=== PATIENT | female | born 1930 | race Caucasian/White ===

== ENCOUNTER 2017-03-03 13:18 | Inpatient (IN) ==
[2017-03-03] MEDS ORDERED: IPRATROPIUM/ALBUTEROL SULFATE 3 ML NEB NEB ONE ×2 (13:28→13:30)
[2017-03-03] MEDS ORDERED: Sodium Chloride 0.9% 1,000 ML PRIMARY IV ONE (13:30)
--- NOTE | 2017-03-03 13:39 | PDOC ---
Dyspnea HPI - General Chief Complaint: Respiratory Complaint Stated Complaint: SHORTNESS OF BREATH Date Seen by Provider: 03/03/17 Time Seen by Provider: 13:30 Source: POSITIVE: Patient, Police Treatment Prior to Arrival: REPORTS: None Nurse's Notes Reviewed & Considered: Yes - History of Present Illness Initial Comments: This is a very pleasant 86-year-old female complaining of shortness of breath. Patient with cough, shortness of breath, and fevers. Her symptoms have been escalating in the beginning of her symptoms is of uncertain timing. Patient is brought in by her son and he states that she just recently has started to try to quit smoking. She does not have a primary care physician. Patient denies headache, no sore throat, no abdominal pain, no nausea vomiting or diarrhea, she does have fever chills and sweats. She has a cough that is productive with yellowish phlegm. She is hypoxic at 77% on room air. Body Location Affected: REPORTS: Chest Timing: REPORTS: Unknown Duration: Unknown Severity: Severe Initiating Event: REPORTS: Upper Respiratory Illness Context: DENIES: Sleep, Rest, Emotional Upset, Activity, Exertion, Other Exacerbated By: REPORTS: Exertion, Coughing Associated Symptoms: REPORTS: Fever, Chills, Sweating, Chest Heaviness, Productive Cough Similar Symptoms Previously: No Recently seen/treated/hospitalized: No Any Prior Injuries Related to Current Complaint?: No - Patient Home Medications Home Medications: Home Medications NK [NK] 03/03/17 - Patient Allergies Allergies/Adverse Reactions: Allergies 3 Allergy/AdvReac Type Severity Reaction Status Date / Time No Known Allergies Allergy Verified 03/03/17 13:43 ROS - Limitations ROS Limitations: No Limitations Constitution: REPORTS: Chills, Fever, Diaphoresis Cardiovascular: REPORTS: Chest Pain Respiratory: REPORTS: Cough Productive, Shortness Of Breath, Wheezing Neurological: REPORTS: Denies Neuro Symptoms Gastrointestinal: REPORTS: Denies GI Symptoms Endocrine: REPORTS: Denies Symptoms Musculoskeletal: REPORTS: Denies MS Symptoms Genitourinary: REPORTS: Denies Symptoms Eyes: REPORTS: Denies Symptoms ENT: REPORTS: Denies Symptoms Skin: REPORTS: Denies Skin Symptoms Lympathic: REPORTS: Denies Lympathic Symptoms Immunologic: POSITIVE: Denies Symptoms Psychiatric: POSITIVE: Denies Psych Symptoms Dyspnea Physical Exam - General Appearance General Appearance: REPORTS: Alert, Cooperative, No Evidence of Trauma, Moderate Distress - HEENT HEENT: POSITIVE: Head Inspection Nml, Eyes Inspection Nml, Ears Inspection Nml, Nose Inspection Nml, Oral/Dental Inspect. Nml, Pharynx Inspect. Nml, PERRL, EOMI - Neck Neck: REPORTS: Normal Inspection - Respiratory Respiratory: REPORTS: No Pleuritic Chest Pain, Speaks Full Sentences, No Pain on Inspiration, Wheezes, Rhonchi, Prolonged Expirations, Accessory Muscle Use, Decreased Air Movement - Cardiovascular Cardiovascular: REPORTS: Regular Rate and Rhythm, Heart Sounds Normal, Strong Pulses, No Murmur, No Gallop, No Friction Rub, No JVD Peripheral Pulses: Radial (R): 4+ - Abdomen Abdomen: Soft: (All Quadrants), Normal Bowel Sounds: (All Quadrants), Denies Tenderness: (All Quadrants), No Splenomegaly: (All Quadrants), No Hepatomegaly: (All Quadrants), No Guarding: (All Quadrants), No Rebound: (All Quadrants), No Palpable Pulse: (All Quadrants), No Palpabale Mass: (All Quadrants), No Distention: (All Quadrants), No Rigidity: (All Quadrants) - Skin Skin: REPORTS: Intact, Normal For Race, Warm, Dry, No Rash - Extremities Extremity: Non-Tender: (All Extremities), Normal ROM: (All Extremities), Normal Inspection: (All Extremities), Pelvis Stable: (All Extremities) - Neurological / Psychological Neurological: POSITIVE: Oriented X3, Motor Normal, Sensation Normal Dyspnea Progress - Results Reviewed by me Xrays/CTs/US Reviewed by me: Yes Discussed with Radiologist: Yes Lab Results Reviewed by Me: Yes CBC and BMP: 03/03/17 13:35 03/03/17 13:35 - Patient's Progress Pain Medication Addressed: POSITIVE: Not Applicable Re-Examine Time: 15:55 Status: POSITIVE: Improved MDM / ED Course: Patient was examined, an IV started, blood drawn and sent to the lab for studies , CT scan of her chest as well as chest x-ray were obtained. Findings: Chest x-ray shows hyperinflation of her lungs with no confluent or consolidated infiltrates. CT scan shows no PE present and no consolidation. CBC shows white count elevated to 12-1/2. Comprehensive metabolic panel is unremarkable. Sputum culture shows wbc's present moderate gram-positive cocci in pairs and singles, gram-positive rods, some yeast. Mycoplasmas and is pending. Assessment: COPD exacerbation with hypoxia and increased work of breathing. plan: Admission, IV antibiotics provided here in the emergency room with Rocephin, and oral azithromycin, Solu-Medrol. DuoNeb nebulizer treatment did improve her wheezing with fair air movement afterwards. Air Movement: POSITIVE: Fair Quality Measure Initiative: CAP: POSITIVE: Antibiotic(s), CXR or CT - Consult Consult (If Yes, Name of Consulting MD & Time Called): Yes (Dr. Salinas: 15:55) Consulting MD will see pt:: POSITIVE: [facility] [place] Admit Counseled: POSITIVE: Patient, Family, RE: Lab Results, RE: Radiology Results, RE : DX Patient Care Time - Estimated PCT Patient Care Time (In Minutes): 45 Vital Signs - Recent Vital Signs Vital Signs: Vital Signs (Last 8 hours) Temp Pulse Pulse Resp BP Pulse Ox 03/03/17 13:45 96.8 F 114 H 18 191/108 76 03/03/17 13:30 110 H 18 91 - VS Reviewed Vital Signs Reviewed: Yes Discharge Clinical Impression: Wheezing, COPD exacerbation, Hypoxia Discharge Disposition: Admit to Inpatient Condition: Fair Patient Instructions Given at Discharge: COPD (Chronic Obstructive Pulmonary Disease) (ED) Follow Up With: NONE,NONE [Primary Care Provider] - Date Decision to Admit to Inpatient: 03/03/17 Time Decision to Admit to Inpatient: 15:59
[2017-03-03 13:47] LABS: Hematocrit [HCT] 45.8 % (37.0-47.0); Hemoglobin [HGB] 15.7 g/dL (12.0-16.0); MEAN CORPUSCULAR HEMOGLOBIN 31.2 PG (27-31); MEAN CORPUSCULAR HGB CONC 34.3 g/dL (33-37); MEAN CORPUSCULAR VOLUME 90.9 FL (81-99); MEAN PLATELET VOLUME 11.3 FL (7.4-12.2); RED BLOOD COUNT 5.04 10^6/uL (4.20-5.40)
[2017-03-03 13:57] LABS: BLOOD UREA NITROGEN 19 mg/dL (7-22); BUN/CREATININE RATIO 31.66 (6-20)
[2017-03-03 14:03] LABS: VENOUS PH 7.36 (7.32-7.42)
[2017-03-03 14:05] LABS: PLATELET MORPHOLOGY COMMENT NORMAL MORPHOLOGY (NORM); RBC MORPHOLOGY COMMENT NORMAL MORPHOLOGY (NORM); WBC MORPHOLOGY COMMENT SEE COMMENTS (NORM)
[2017-03-03 14:06] LABS: BAND NEUTROPHILS % 4 % (0-10); BASOPHILS % (MANUAL) 0 % (0-1); EOSINOPHILS % (MANUAL) 1 % (0-8); METAMYELOCYTES % 3 %; MONOCYTES % (MANUAL) 9 % (0-12); MYELOCYTES % 0 %; NEUTROPHILS % (MANUAL) 71 % (50-80); PROMYELOCYTES % 0 %
--- NOTE | 2017-03-03 15:43 | DI ---
EXAM: XR Chest, 2 Views CLINICAL HISTORY: Physician Notes: Tech Comments: TECHNIQUE: Frontal and lateral views of the chest. COMPARISON: X-ray 10/29/11 FINDINGS: Lungs: Hyperinflated lung ayala. Mild reticulonodular opacities. No focal consolidation. Pleural space: Unremarkable. No pneumothorax. Heart: Unremarkable. Mediastinum: Unremarkable. Bones/joints: No acute fracture. IMPRESSION: Hyperinflated lung ayala. Mild reticulonodular opacities. No confluent consolidation.
[2017-03-03] MEDS ORDERED: AZITHROMYCIN 250 MG TABLET PO ONE (15:51)
[2017-03-03] MEDS ORDERED: cefTRIAXone Inj 2 GM in Sodium Chloride 0.9% 100 ML IV ONE (15:51)
[2017-03-03] MEDS ORDERED: methylPREDNISolone Succ Inj 125 MG in Sodium Chloride 0.9% 100 ML IV ONE (15:52)
[2017-03-03] MEDS ORDERED: methylPREDNISolone 125 MG/2 ML VIAL IVP ONE (15:59)
--- NOTE | 2017-03-03 16:04 | DI ---
EXAM: CT Angiography Chest With Intravenous Contrast CLINICAL HISTORY: Physician Notes: Tech Comments: TECHNIQUE: Axial computed tomographic angiography images of the chest with intravenous contrast using pulmonary embolism protocol. MIP reconstructed images were created and reviewed. COMPARISON: No relevant prior studies available. FINDINGS: Pulmonary arteries: No central pulmonary embolus. Aorta: No thoracic aortic aneurysm. Lungs: Mild patchy nodular infiltrates. Scarring in the lung apices hyperinflated lung ayala Pleural space: Unremarkable. No effusion. No pneumothorax. Heart: Small pericardial effusion. Bones/joints: No acute fracture. No dislocation. Soft tissues: Unremarkable. Lymph nodes: Unremarkable. No enlarged lymph nodes. Kidneys and ureters: Right renal cyst. IMPRESSION: 1. No central pulmonary embolus. 2. Small pericardial effusion. 3. Mild patchy nodular infiltrates.
[2017-03-03] MEDS ORDERED: LIDOCAINE W/ SODIUM BICARB 0.5 ML SYR SUBD PRN (16:46)
[2017-03-03] MEDS ORDERED: ALBUTEROL SULFATE 2.5 MG/3 ML NEB PRN (16:50)
--- NOTE | 2017-03-03 17:15 | PDOC ---
HPI - History of Present Illness Date and Time of Service: 03/03/2017 5:40 PM Chief Complaint: Shortness of breath of 2 days' duration History of Present Illness: This is an 86 years old female with medical history significant only for history of hypertension on no medications who came into the hospital with history of shortness of breath that started 2 days ago, shortness of breath is exertional also has cough and phlegm production which is yellow. She didn't think that she had fever. There is no chest pain. There is no leg swelling. Because of all the symptoms came into the ER, she was hypoxic with saturation of about 76% on room air. She was put on oxygen and the rest of Evaluation in the ER revealed COPD exacerbation and hence the admission. She did receive steroid, bronchodilator treatment and antibiotics. She is feeling somewhat better compared to when she came in. She said she is fairly independent and she 's not on oxygen at home. Past Medical History Medical History: 1. Hypertension Surgical History: History of previous hip replacement Family History: Reviewed an Not Pertinent Past Social History: She continued to smoke she smoke a pack a day since she was 15 years old, doesn't drink alcohol. Tobacco Use: Current Every Day Smoker In the Past 12 Months, Have Used or Abuse Any of the Following Substance: None Alcohol Use: None Medication / Allergies Home Medications: Home Medications Medication Instructions Recorded Confirmed Type NK [NK] 03/03/17 03/03/17 History Allergies/Adverse Reactions: Allergies 3 Allergy/AdvReac Type Severity Reaction Status Date / Time No Known Allergies Allergy Verified 03/03/17 16:35 Review of Systems - Review of Systems All Systems: Reviewed & No Additional Complaints Except as Stated Exam - Vitals Vital Signs: Vital Signs Pulse Rate [Apical] 120 Respiratory Rate 28 Oxygen Flow Rate 2 Oxygen Delivery Method Nasal Cannula Height 5 ft 2 in Weight 111 lb 3.2 oz - General General Appearance: Thin Additional General Exam Details: Her breathing is labored - Head Head Exam: Normal Inspection - Eye Eye Exam: POSITIVE: Normal Appearance - ENT ENT Exam: POSITIVE: Normal Exam - Neck Neck Exam: Normal Inspection - Respiratory Additional Respiratory Exam Details: Bilateral expiratory wheezes heard - Cardiovascular Cardiovascular Exam: POSITIVE: RRR - GI/Abdominal GI/Abdominal Exam: POSITIVE: Normal Bowel Sounds, Non Tender, Non Distended, Soft - Rectal Rectal Exam: POSITIVE: Deferred - External Exam: POSITIVE: Deferred - Extremities Extremities Exam: POSITIVE: Normal Inspection - Back Back Exam: POSITIVE: Normal Inspection - Neurological Neurological Exam: POSITIVE: Alert - Psychiatric Psychiatric Exam: POSITIVE: Normal Affect - Integumentary Integumentary Exam: POSITIVE: Normal Color Results - Labs CBC and BMP: 03/03/17 13:35 03/03/17 13:35 - EKG Data -: EKG Interpreted by Me Rate: Tachycardia - EKG Data EKG Interpretation: Other (EKG shows sinus tachycardia with frequent supraventricular premature beats, borderline right axis deviation) - Imaging Status: Report Reviewed by Me (CT of the chest showed no central pulmonary embolus, small pericardial effusion, mild patchy nodular infiltrates) Assessment and Plan - Patient Problems (1) COPD exacerbation Current Visit: Yes Status: Acute Comment: We'll treat as such her with steroids, antibiotics and bronchodilator. Code(s): J44.1 - Chronic obstructive pulmonary disease with (acute) exacerbation (2) Hypertension Current Visit: Yes Status: Acute Comment: We'll watch her blood pressure we may need to put her on medication for blood if pressure blood pressure remains elevated. Code(s): I10 - Essential (primary) hypertension
[2017-03-03] MEDS: Sodium Chloride 0.9% 1,000 ML PRIMARY IV SCH (17:20)
--- NOTE | 2017-03-03 18:02 | EKG ---
[address] [address] Measurements Intervals [place] Rate: 108 P: 81 WA: 149 QRS: 100 QRSD: 82 T: 69 QT: 319 QTc: 383 Interpretive Statements SINUS TACHYCARDIA WITH FREQUENT SUPRAVENTRICULAR PREMATURE COMPLEXES BORDERLINE RIGHT AXIS DEVIATION NONSPECIFIC ST & T-WAVE ABNORMALITY ABNORMAL RHYTHM ECG No previous ECG available for comparison Electronically Signed On 03-03-17 20:01:23 MDT by João Bowen [email or web address]
[2017-03-03] MEDS ORDERED: IPRATROPIUM/ALBUTEROL SULFATE 3 ML NEB NEB SCH (19:00)
[2017-03-03] MEDS ORDERED: AmLODIPine Tab 2.5 MG TABLET PO ONE (20:00)
[2017-03-03] MEDS: methylPREDNISolone 125 MG/2 ML VIAL IVP SCH (23:31)
[2017-03-04 04:33] LABS: BASOPHILS # (AUTO) 0.02 10*3/UL; BASOPHILS % (AUTO) 0.3 % (0-1); EOSINOPHILS # (AUTO) 0 10*3/UL; EOSINOPHILS % (AUTO) 0 % (0-8); Hematocrit [HCT] 39.6 % (37.0-47.0); Hemoglobin [HGB] 13.5 g/dL (12.0-16.0); LYMPHOCYTES # (AUTO) 0.46 10*3/uL; MEAN CORPUSCULAR HEMOGLOBIN 31.5 PG (27-31); MEAN CORPUSCULAR HGB CONC 34.1 g/dL (33-37); MEAN CORPUSCULAR VOLUME 92.3 FL (81-99); MEAN PLATELET VOLUME 11.4 FL (7.4-12.2); MONOCYTES # (AUTO) 0.71 10*3/UL (0.3-0.8); MONOCYTES % (AUTO) 8.9 % (5-15); NEUTROPHILS # (AUTO) 6.72 10*3/UL; NEUTROPHILS % (AUTO) 84.6 % (50-80); RED BLOOD COUNT 4.29 10^6/uL (4.20-5.40)
[2017-03-04 04:46] LABS: BLOOD UREA NITROGEN 16 mg/dL (7-22); BUN/CREATININE RATIO 26.66 (6-20)
[2017-03-04] MEDS: methylPREDNISolone 125 MG/2 ML VIAL IVP SCH ×4 (04:46→22:15)
[2017-03-04 04:48] LABS: PLATELET MORPHOLOGY COMMENT NORMAL MORPHOLOGY (NORM); RBC MORPHOLOGY COMMENT NORMAL MORPHOLOGY (NORM); WBC MORPHOLOGY COMMENT NORMAL MORPHOLOGY (NORM)
[2017-03-04] MEDS: Sodium Chloride 0.9% 1,000 ML PRIMARY IV SCH (05:51)
[2017-03-04] MEDS: LEVALBUTEROL HCL 1.25 MG/3 ML NEB SCH ×4 (07:21→19:24)
[2017-03-04] MEDS ORDERED: AmLODIPine Tab 2.5 MG TABLET PO SCH (09:00)
--- NOTE | 2017-03-04 09:20 | PDOC(PROG) ---
Date and Time of Service: 03/04/2017 9:18 AM Interval History: Subjective Patient feels much better today compared to yesterday, breathing is better, cough is also better. Objective : Data - Labs CBC and BMP: 03/04/17 03:50 03/04/17 03:50 Objective : Exam - General General Appearance: No Acute Distress, Cooperative - Head Head Exam: Normal Inspection, Atraumatic - Eye Eye Exam: Normal Appearance - ENT ENT Exam: Normal Exam - Neck Neck Exam: Normal Inspection - Respiratory Additional Respiratory Exam Details: Bilateral wheezes still present but less than yesterday - Cardiovascular Cardiovascular Exam: RRR - GI/Abdominal GI/Abdominal Exam: Normal Bowel Sounds, Non Tender, Non Distended, Soft - Rectal Rectal Exam: Deferred - External Exam: Deferred - Extremities Extremities Exam: Normal Inspection - Back Back Exam: Normal Inspection - Neurological Neurological Exam: Alert, CN II-XII Intact, No Facial Droop, Speech Intact / Clear, Moves All Extremities Equally - Psychiatric Psychiatric Exam: Normal Affect Assessment and Plan - Patient Problems (1) COPD exacerbation Current Visit: Yes Status: Acute Comment: She is improving, But she continued to have some wheezes I think we'll keep the same dosage of the steroid for today will think about cutting it tomorrow. The CT showed some patchy infiltrates so continue antibiotics. She did have elevated lactate when she came in I think this mostly secondary to the hypoxia its improved, I think we can stop the fluid. Code(s): J44.1 - Chronic obstructive pulmonary disease with (acute) exacerbation (2) Hypertension Current Visit: Yes Status: Acute Comment: Blood pressure remained high yesterday so I gave her a dose of Norvasc will continue Code(s): I10 - Essential (primary) hypertension (3) DVT prophylaxis Current Visit: Yes Status: Acute Comment: Well Put her on SCD boots and low dose Lovenox
--- NOTE | 2017-03-04 11:33 | PDOC(PROG) ---
Objective : Data - Labs CBC and BMP: 03/04/17 03:50 03/04/17 03:50 Assessment and Plan - Patient Problems (1) COPD exacerbation Current Visit: Yes Status: Acute Code(s): J44.1 - Chronic obstructive pulmonary disease with (acute) exacerbation (2) Hypertension Current Visit: Yes Status: Acute Code(s): I10 - Essential (primary) hypertension (3) DVT prophylaxis Current Visit: Yes Status: Acute
[2017-03-04] MEDS: cefTRIAXone Inj 1 GM in Sodium Chloride 0.9% 100 ML IV SCH (16:15)
[2017-03-04] MEDS ORDERED: ONDANSETRON 4 MG/2 ML VIAL IVP PRN (18:37)
[2017-03-04] MEDS ORDERED: Influenza 17-18 Vaccine (6mo+) Quad 60mcg/0.5ml PF IM ONE (20:00)
[2017-03-04] MEDS: diphenhydrAMINE 25 MG CAPSULE PO PRN (21:43)
[2017-03-04] MEDS: ACETAMINOPHEN 500 MG TABLET PO PRN (21:44)
[2017-03-04] MEDS: MAGNESIUM 400 MG/5 ML - 30 ML (MILK OF MAGNESIA) PO PRN (21:45)
[2017-03-04] MEDS: NORMAL SALINE 10 ML SYRINGE FLUSH IVP PRN (22:15)
[2017-03-05] MEDS: NORMAL SALINE 10 ML SYRINGE FLUSH IVP PRN ×2 (04:32→19:50)
[2017-03-05] MEDS: methylPREDNISolone 125 MG/2 ML VIAL IVP SCH ×3 (04:32→19:50)
[2017-03-05] MEDS: LEVALBUTEROL HCL 1.25 MG/3 ML NEB SCH ×4 (07:12→19:00)
--- NOTE | 2017-03-05 07:40 | PDOC(PROG) ---
Date and Time of Service: 03/05/2017 7:40 AM Interval History: Subjective Patient continued to feel better. Breathing is improving. No significant cough. No chest pain. Objective : Data - Labs CBC and BMP: 03/04/17 03:50 03/04/17 03:50 Objective : Exam - General General Appearance: No Acute Distress, Cooperative, Thin - Head Head Exam: Normal Inspection - Eye Eye Exam: Normal Appearance - ENT ENT Exam: Normal Exam - Neck Neck Exam: Normal Inspection - Respiratory Additional Respiratory Exam Details: Still bilateral wheezes less than before. - Cardiovascular Cardiovascular Exam: RRR - GI/Abdominal GI/Abdominal Exam: Normal Bowel Sounds, Non Tender, Non Distended, Soft, No Organomegaly - Rectal Rectal Exam: Deferred - External Exam: Deferred - Extremities Extremities Exam: Normal Inspection - Back Back Exam: Normal Inspection - Neurological Neurological Exam: Alert, Oriented x 3, CN II-XII Intact, Speech Intact / Clear , Moves All Extremities Equally - Psychiatric Psychiatric Exam: Normal Affect Assessment and Plan - Patient Problems (1) COPD exacerbation Current Visit: Yes Status: Acute Comment: This is improving I think we'll start cutting back on the steroid. Continue antibiotics. Continue bronchodilator. He is weak will ask PT and OT to work with her. Code(s): J44.1 - Chronic obstructive pulmonary disease with (acute) exacerbation (2) Hypertension Current Visit: Yes Status: Acute Comment: Blood pressure when she came in was elevated in the 190s systolic and we gave her a dose of Norvasc. Blood pressure seem to be coming down I think will hold off on further medications and watch her blood pressure. Code(s): I10 - Essential (primary) hypertension (3) DVT prophylaxis Current Visit: Yes Status: Acute Comment: She is on Lovenox (4) Gram-positive bacteremia Current Visit: Yes Status: Acute Comment: 1 bottle out of 4 is growing gram-positive coccobacillus clinically she is making improvements I think we'll continue same antibiotics until we have identifications. Code(s): R78.81 - Bacteremia
[2017-03-05] MEDS: ENOXAPARIN SODIUM 30 MG/0.3 ML SYRINGE SUBCUT SCH (08:30)
[2017-03-05] MEDS ORDERED: AmLODIPine Tab 2.5 MG TABLET PO SCH (09:00)
--- NOTE | 2017-03-05 16:09 | PT.PROG ---
Progress Note Progress Note: S. Patient stated that she is feeling good this afternoon. O. Patient ambulated 3 laps around the nurses station then performed exercises in the form of; Long arc quads, heel toe raises, marches, pillow squeezes, clamshells, resisted knee flexion, sit to stands all x 10 bilaterally. Patient was left with OT for further therapy. A. Patient tolerated therapy well, she continues to have balance deficits however is able to perform all exercises well. She would continue to benefit from skilled therapy at this time. P. Continue POC.
--- NOTE | 2017-03-05 16:14 | OTI REPORT ---
Thank you for the referral of Lupe Canas. She was seen on 03/05/17 for an occupational therapy inpatient evaluation secondary to COPD exacerbation and hypertension. SUBJECTIVE: The patient is an 86-year-old female who is being seen today secondary to having a COPD exacerbation and hypertension. She said that she was diagnosed approximately five years ago. The patient reports she was probably too busy last week as she went to a football game and it was very cold and she thinks that is what started some of her breathing difficulties. The patient also went to a concert the same night at the high school, had been to [employer] two days in a row, and also had to do quite a bit of driving around running errands on and Saturday. By Saturday, the patient said it hit her. The patient lives by herself in a trailer home. She has four steps to get into her home with a hand rail. The patient has a bathtub that she usually sits in with grab bars in the bath. The patient has a standard toilet. Prior to admission the patient was independent with laundry, cooking, cleaning, groceries, and driving and she is in charge of her medications. She states the only medications she takes are Aleve and Tylenol PM and she uses Aspercreme for achy joints. She says she does not have any difficulty with swallowing food or liquid. The patient states that her daughter helps her every once in a while, but for the most part she tries to be as independent as possible. PAST MEDICAL HISTORY: Past medical history can be found in the patient's medical record. OBJECTIVE FINDINGS: Range of motion: The patient demonstrates full active range of motion of the upper extremities. Strength: Strength throughout was 4/5 for flexion, 4/5 for abduction, 4+/5 for biceps/triceps, 4/5 for wrist flexion/extension. Bed mobility: The patient did well with bed mobility. She turned around behind her and grabbed items off of the table and was able to pull herself back up with her stomach muscles. Activities of daily living: The patient was able to sit edge of bed and don and doff her socks independently by placing her ankle on the opposite leg. We went to the bathtub area and the patient was able to sit in the bathtub completely and then pull herself back up with use of grab bars. She states that getting up is slightly more difficult but she was able to do this without much difficulty. The patient was able to complete a tub transfer as well as a toilet transfer with stand by assistance. At this point in time the patient is independent with feeding herself. She does not present with any swallowing difficulties. ASSESSMENT: The patient is doing very well with her ADLs. She requires stand by assist for functional transfers and does not require any assistive devices at this point in time. Problem List: Decreased activity tolerance Decreased strength Short-Term Goals: To be met by discharge from inpatient: Patient will increase upper extremity strength to 5/5. Patient will be able to complete 20 minutes of exercise without breathing difficulties. Patient will learn three energy conservation techniques that she can complete on her own. Long-Term Goals: To be met following discharge from inpatient: Patient will return home and be able to complete all in home and activities of daily living independently. TREATMENT PLAN: Patient will be seen B.I.D during the week and one time per day over the weekend as an inpatient to address the above goals and objectives. INITIAL TREATMENT: Treatment today consisted of the initial evaluation followed by lower extremity dressing activities and simulating a tub transfer with stand by assistance. The patient was then transferred back to bed. SILVANA
[2017-03-05] MEDS: cefTRIAXone Inj 1 GM in Sodium Chloride 0.9% 100 ML IV SCH (16:15)
--- NOTE | 2017-03-05 16:45 | OT.PROG ---
Progress Note Progress Note: S; pt states she walks at least 200 ft a day when she goes to her sons. O: pt was seen in her room in the p.m. after PT. She completed several activities with PT before beginning OT. She completed UE exercises while seated with RTB in all ranges x15 with BUE's. She also completed bed mobility Ind and was left in supine with alarm on and call light within reach. A: pt may continue to benefit from therapy to increase activity tolerance and strength of LE/UE to return home Ind and functional. P: continue per POC.
[2017-03-05] MEDS: diphenhydrAMINE 25 MG CAPSULE PO PRN (21:12)
[2017-03-05] MEDS: ACETAMINOPHEN 500 MG TABLET PO PRN (21:12)
[2017-03-06] MEDS: methylPREDNISolone 125 MG/2 ML VIAL IVP SCH ×3 (04:24→20:29)
[2017-03-06] MEDS: NORMAL SALINE 10 ML SYRINGE FLUSH IVP PRN ×2 (04:24→20:29)
[2017-03-06 05:10] LABS: Hematocrit [HCT] 38.6 % (37.0-47.0); Hemoglobin [HGB] 12.7 g/dL (12.0-16.0); MEAN CORPUSCULAR HEMOGLOBIN 30.8 PG (27-31); MEAN CORPUSCULAR HGB CONC 32.9 g/dL (33-37); MEAN CORPUSCULAR VOLUME 93.7 FL (81-99); MEAN PLATELET VOLUME 11.3 FL (7.4-12.2); RED BLOOD COUNT 4.12 10^6/uL (4.20-5.40)
[2017-03-06 05:43] LABS: BLOOD UREA NITROGEN 30 mg/dL (7-22); BUN/CREATININE RATIO 42.85 (6-20)
[2017-03-06 06:06] LABS: PLATELET MORPHOLOGY COMMENT NORMAL MORPHOLOGY (NORM); RBC MORPHOLOGY COMMENT NORMAL MORPHOLOGY (NORM); WBC MORPHOLOGY COMMENT NORMAL MORPHOLOGY (NORM)
[2017-03-06 06:08] LABS: BAND NEUTROPHILS % 16 % (0-10); BASOPHILS % (MANUAL) 0 % (0-1); EOSINOPHILS % (MANUAL) 0 % (0-8); MONOCYTES % (MANUAL) 1 % (0-12); NEUTROPHILS % (MANUAL) 72 % (50-80)
[2017-03-06] MEDS: LEVALBUTEROL HCL 1.25 MG/3 ML NEB SCH ×4 (06:15→19:07)
[2017-03-06] MEDS: ENOXAPARIN SODIUM 30 MG/0.3 ML SYRINGE SUBCUT SCH (08:17)
--- NOTE | 2017-03-06 10:58 | PDOC(PROG) ---
Interval History: Patient still not ready to go home she says does not feel comfortable still wheezing and occasional cough bilateral lungs and weak Objective : Data - Labs CBC and BMP: 03/06/17 04:00 03/06/17 04:00 Objective : Exam - General General Appearance: No Acute Distress, Cooperative - Respiratory Respiratory Exam: Decreased Breath Sounds, Rhonci, Wheezes, Coarse Breath Sounds - Cardiovascular Cardiovascular Exam: RRR, No Murmur, No Clicks, No Gallops - GI/Abdominal GI/Abdominal Exam: Normal Bowel Sounds, Non Tender, Non Distended, Soft - Extremities Extremities Exam: No Clubbing Present, No Cyanosis Present Assessment and Plan - Patient Problems (1) Pneumonia Current Visit: Yes Status: Acute Comment: I will changed to 2 g IV ceftriaxone positive blood cultures for Haemophilus influenza. She did receive her pneumonia shot earlier this month Code(s): J18.9 - Pneumonia, unspecified organism (2) COPD exacerbation Current Visit: Yes Status: Acute Comment: Still wheezing continue steroids inhalers Code(s): J44.1 - Chronic obstructive pulmonary disease with (acute) exacerbation (3) Gram-positive bacteremia Current Visit: Yes Status: Acute Comment: Increased to 2 g IV every 24 of ceftriaxone Code(s): R78.81 - Bacteremia (4) Weakness Current Visit: Yes Status: Acute Comment: Patient lives alone PT OT has evaluated her and from their standpoint she is moving around pretty well we will continue PT Code(s): R53.1 - Weakness - Assessment / Plan Additional Assessment/Plan Details: I have discussed the case with nursing patient and son at the bedside all in agreement
[2017-03-06] MEDS: cefTRIAXone Inj 2 GM in Sodium Chloride 0.9% 100 ML IV SCH (11:10)
[2017-03-06] MEDS ORDERED: LIDOCAINE 2% 20 MG/ML - 20 ML VIAL SUBCUT PRN (11:25)
[2017-03-06] MEDS ORDERED: NORMAL SALINE 10 ML SYRINGE FLUSH IV PRN (11:25)
[2017-03-06] MEDS ORDERED: Lidocaine 1% 10 MG/ML - 20 ML VIAL SUBCUT PRN (11:25)
--- NOTE | 2017-03-06 12:52 | PTI REPORT ---
Thank you for the referral of Lupe Canas. She was seen on 03/05/17 for an inpatient evaluation secondary to weakness. SUBJECTIVE: The patient is an 86-year-old female who states that she started to have some shortness of breath on . She came into the hospital and was found to have 76% oxygen saturation on room air. The patient was also diagnosed with having a COPD exacerbation. The patient states that she lives outside of [place]. She does live by herself with her puppy, but she has a son that lives 200 feet away and she walks to and from his house everyday. The patient also has four other sons and a daughter in town who all can assist her with anything as needed, but she states that she was independent with her ADLs prior to coming to the hospital. The patient stated when she started to have the shortness of breath it came on fast. She is wondering if it was maybe because she had been doing a lot of other activities earlier in the week and it just caught up to her. The patient is not normally on oxygen at home. The patient states that she was not using an assistive device, but does have a cane around for when she feels unsteady. She does have four steps into and out of her house , but her house is all one level. The patient had a right total hip replacement approximately five years ago and has been doing pretty well since then. She states her left hip acts up at times. The patient states that the last fall that she had was last year on the ice; otherwise she states she gets around pretty well and feels that she has good balance. The patient states that she does feel like she has gotten weaker since being in the hospital as she hasn't gotten up as much. She states she is looking forward to doing therapy and hopes that she gets to go home soon. PAST MEDICAL HISTORY: Past medical history can be found in the patient's medical record. OBJECTIVE FINDINGS: General observations: The patient was alert and oriented to setting upon PT arrival. The patient was found supine in bed. The patient is on one liter of oxygen. Bed mobility: The patient was able to transfer from supine in bed to seated edge of bed independently. Balance: The patient demonstrated good static seated balance and fair dynamic seated balance. The patient was able to stand and perform balance activity with hand hold assist of two and max cueing in order to move in the frontal, sagittal, and transverse planes with both lower extremities. The patient was able to perform the activity fairly well. She does have difficulty with her dynamic standing, but her static standing after getting her initial balance was good. Strength: In a seated position, manual muscle testing was performed on bilateral lower extremities resulting in 4/5 gross lower extremity strength. Transfers: The patient was able to independently move from a seated to standing position. She demonstrated fair initial standing balance without use of an assistive device and did require contact guard assist x1 for safety. ASSESSMENT: The patient has good rehab potential. Problem List: Decreased endurance/activity tolerance Decreased balance Short-Term Goals: To be met by discharge from inpatient: Patient will be able to ascend and descend at least four stairs with least restrictive assistive device safely. Patient will be able to ambulate at least 150 feet with least restrictive assistive device safely. Patient will demonstrate good dynamic seated and standing balance in order to remove home. Long-Term Goals: To be met following discharge from inpatient: Patient may be seen by outpatient physical therapy if deemed necessary at time of discharge. TREATMENT PLAN: Patient will be seen B.I.D during the week and one time per day over the weekend as an inpatient to improve seated and standing dynamic balance and initial standing balance and working to improve the patient's overall endurance and activity tolerance so that she is able to go home safely. INITIAL TREATMENT: Treatment today consisted of the initial evaluation followed by one unit of functional activity. The patient was fairly fatigued after her balance activity. The patient transferred back to sitting edge of bed independently and was able to independently get back into bed. After initial evaluation the patient's call light was placed within reach of the patient and her bed alarm was set. MTDD
--- NOTE | 2017-03-06 15:45 | OT AM DAY ---
Diagnosis : COPD Exacerbation AM - Occupational Therapy S: The patient reports no new changes. O: The patient completed a toilet transfer and shower transfer independently. The patient completed upper extremity strengthening activities with red theraband for horizontal abduction, biceps, triceps, internal/external rotation, and horizontal diagonal patterns. The patient also performed bed mobility independently. A: The patient is making gains and is doing well physically. P: Continue seeing patient BID during the week and one time per day over the weekend for upper extremity strengthening, ADLs, and overall functional mobility. MTDD
[2017-03-06] MEDS: HEPARIN 500 UNIT/5 ML SYRINGE FOR CENTRAL LINE IVP PRN (20:29)
[2017-03-06] MEDS: diphenhydrAMINE 25 MG CAPSULE PO PRN (22:02)
[2017-03-06] MEDS: ACETAMINOPHEN 500 MG TABLET PO PRN (22:02)
[2017-03-07] MEDS: methylPREDNISolone 125 MG/2 ML VIAL IVP SCH ×2 (04:40→12:34)
[2017-03-07] MEDS: NORMAL SALINE 10 ML SYRINGE FLUSH IVP PRN (04:41)
[2017-03-07] MEDS: LEVALBUTEROL HCL 1.25 MG/3 ML NEB SCH ×4 (06:21→18:41)
[2017-03-07] MEDS: ENOXAPARIN SODIUM 30 MG/0.3 ML SYRINGE SUBCUT SCH (08:35)
--- NOTE | 2017-03-07 09:17 | PT AM DAY ---
Diagnosis : COPD Exacerbation AM - Physical Therapy S: The patient states she does not want to come down to therapy; however, she states she would be willing to do some therapy upstairs. O: The patient ambulated 150 feet around the nurse's station. The patient then performed exercises in her room in the form of long arc quads, heel/toe raises, marches, sit to stands, mini sit ups, bridges, hip abduction/adduction in supine, and standing heel/toe raises. The patient was left in bed with bed alarm on and call light within reach. A: The patient tolerated therapy well; however, she required frequent rest breaks and mod assist with transfers and became very fatigued toward the end of her ambulation. The patient would continue to benefit from skilled therapy at this time. P: Continue seeing patient BID during the week and one time per day over the weekend for transfers, ambulation, and range of motion/strengthening exercises. MTDD
[2017-03-07] MEDS: cefTRIAXone Inj 2 GM in Sodium Chloride 0.9% 100 ML IV SCH (11:30)
--- NOTE | 2017-03-07 12:05 | DI ---
INSERTION OF PICC LINE WITH FLUOROSCOPIC GUIDANCE, 03/06/2017 11:25 AM: Clinical History: Need for long-term antibiotics. Technique: After informed, signed consent was obtained, the right arm was prepped with Betadine and a lcohol. Venipuncture was attempted approximately 4 times on the right arm, but a wire was never advan claudine. The left arm was then prepped and draped in usual sterile fashion and 1% lidocaine used for loca l anesthesia. Under sonographic guidance, the left basilic vein was accessed with a micropuncture needle and an 018 wire advanced. The introducer sheath was positioned in place using the Seldinger technique with local anesthesia (1% Lidocaine without epinephrine). A 4 [place]ian double lumen Bard Power Picc Solo PICC catheter was inser dewey and the tip was positioned with fluoroscopic guidance. Fluoroscopic documentation was with a spot film. The standard dry sterile dressing kit was used to secure the catheter. Final catheter documentation w as with a spot film of the chest and this film confirmed that the catheter tip was in the innominate vein. The patient tolerated the procedure well and was discharged in stable condition. Standard instr uctions regarding wound care precautions and dressing changes were discussed with the patient prior t o discharge. Concrete Pipe Maker: Shaquille baron M.D. Locomotive Oiler: None. Complications: None. Reading: PICC line placement as above.
--- NOTE | 2017-03-07 12:28 | PT.PROG ---
Progress Note Progress Note: S. Patient agreed to go to the therapy gym this morning. O. Patient ambulated 175 feet to the therapy gym where she used the nu-step x 5 minutes, then performed exercises in the form of; long arc quads, heel toe raises, marches, resisted knee flexion, clamshells, and ball squeezes, sit to stands all x 10 bilaterally with yellow theraband. A. Patient tolerated therapy well, She requires frequent rest breaks and cues to stay on task. She fatigues easily, and would continue to benefit from therapy to increase strength and endurance. P. Continue POC.
--- NOTE | 2017-03-07 13:34 | PDOC(PROG) ---
Interval History: Patient is doing well still weak she still doesn't feel safe to go home PICC line was inserted and she will need a total 14 days of IV antibiotics and overall feels better from her pneumonia Objective : Data - Labs CBC and BMP: 03/06/17 04:00 03/06/17 04:00 Objective : Exam - General General Appearance: Cooperative - Respiratory Additional Respiratory Exam Details: Her lungs sound clear less wheezing - Cardiovascular Cardiovascular Exam: RRR, No Murmur, No Clicks - GI/Abdominal GI/Abdominal Exam: Normal Bowel Sounds, Non Distended, Soft - Extremities Extremities Exam: No Clubbing Present, No Edema Present, No Cyanosis Present Assessment and Plan - Patient Problems (1) Pneumonia Current Visit: Yes Status: Acute Comment: Continue IV antibiotics totally 14 days PICC line was inserted Code(s): J18.9 - Pneumonia, unspecified organism (2) COPD exacerbation Current Visit: Yes Status: Acute Comment: We'll change to by mouth steroids Code(s): J44.1 - Chronic obstructive pulmonary disease with (acute) exacerbation (3) Gram-positive bacteremia Current Visit: Yes Status: Acute Comment: IV Rocephin 2 g total 14 days discuss case with infectious disease Dr. Garibay Code(s): R78.81 - Bacteremia (4) Weakness Current Visit: Yes Status: Acute Comment: PT OT Code(s): R53.1 - Weakness
--- NOTE | 2017-03-07 13:59 | EKG ---
[address] [address] Measurements Intervals [place] Rate: 100 P: 70 TX: 127 QRS: 81 QRSD: 92 T: 52 QT: 335 QTc: 392 Interpretive Statements SINUS TACHYCARDIA WITH FREQUENT SUPRAVENTRICULAR AND VENTRICULAR PREMATURE COMPLEXES Compared to ECG 03/03/2017 13:45:29 T-wave abnormality no longer present Electronically Signed On 03-07-17 16:44:35 MDT by João Bowen [email or web address]
--- NOTE | 2017-03-07 15:29 | OT.PROG ---
Progress Note Progress Note: S: pt was accompanied by her daughter when arrived. She stated she did not want to go outside until this afternoon as it is to cold now. O: pt was seen in her room in the a.m. She completed functional transfer to restroom with assistance from daughter. She donned LE pants Ind. She transferred downstairs half way with no walker, but took one break due to fatigue. She then transferred the rest of way into therapy with use of walker. She completed 5 min on arm bike to increase activity tolerance. At this time her o2 was increased to 2 liters. She completed UE exercises with RTB in all ranges x10 and cane 2# bilateral shoulder flex. She was returned to her room by PT. A: pt may continue to benefit from therapy to increase her activity tolerance as it is low at this time. P: continue per POC.
[2017-03-07] MEDS: ACETAMINOPHEN 500 MG TABLET PO PRN (21:14)
[2017-03-07] MEDS: diphenhydrAMINE 25 MG CAPSULE PO PRN (21:15)
[2017-03-08] MEDS: LEVALBUTEROL HCL 1.25 MG/3 ML NEB SCH ×4 (07:00→19:03)
[2017-03-08 08:47] LABS: BLOOD UREA NITROGEN 23 mg/dL (7-22); BUN/CREATININE RATIO 28.75 (6-20); SERUM ALBUMIN 2.7 g/dL (3.5-4.8)
[2017-03-08] MEDS: predniSONE Tab 20 MG TAB PO SCH (08:59)
[2017-03-08] MEDS: ENOXAPARIN SODIUM 30 MG/0.3 ML SYRINGE SUBCUT SCH (08:59)
--- NOTE | 2017-03-08 10:11 | PDOC(PROG) ---
Interval History: Doing well still a few wheezes bilaterally but improved since yesterday no chest pain nausea or vomiting Objective : Data - Labs CBC and BMP: 03/06/17 04:00 03/08/17 08:33 Objective : Exam - General General Appearance: Cooperative - Head Head Exam: Normal Inspection - Eye Eye Exam: Normal Appearance - Respiratory Additional Respiratory Exam Details: Bilateral expiratory wheezes improved since yesterday - Cardiovascular Cardiovascular Exam: RRR, No Murmur, No Clicks - GI/Abdominal GI/Abdominal Exam: Normal Bowel Sounds, Non Tender, Non Distended - Extremities Extremities Exam: No Clubbing Present, No Edema Present Assessment and Plan - Patient Problems (1) Pneumonia Current Visit: Yes Status: Acute Comment: Continue IV antibiotics total 14 days Code(s): J18.9 - Pneumonia, unspecified organism (2) COPD exacerbation Current Visit: Yes Status: Acute Comment: Continue her inhalers switched to oral prednisone 40 daily Code(s): J44.1 - Chronic obstructive pulmonary disease with (acute) exacerbation (3) Gram-positive bacteremia Current Visit: Yes Status: Acute Comment: PICC line inserted IV antibiotics for 2 weeks Code(s): R78.81 - Bacteremia (4) Weakness Current Visit: Yes Status: Acute Comment: Consult PTOT Code(s): R53.1 - Weakness
[2017-03-08] MEDS: cefTRIAXone Inj 2 GM in Sodium Chloride 0.9% 100 ML IV SCH (10:42)
[2017-03-08] MEDS: HEPARIN 500 UNIT/5 ML SYRINGE FOR CENTRAL LINE IVP PRN (11:32)
--- NOTE | 2017-03-08 12:05 | OT.PROG ---
Progress Note Progress Note: S: pt states that her daughter will be brining her some cloths this afternoon, as she is hoping to go outside. O: pt was seen in her room in the a.m. She was receiving I.v tx at this time so it was determined that completing exercises in room would be beneficial. She completed bed mobility Ind to EOB. She complete UE exercises with RTB in shoulder flex/EXt, bicep flex, rows, tricep flex and hor ab/add. She completed bed mobility back into bed Ind and bed alarm was set. A: pt may continue to benefit from therapy to increase activity tolerance at this time. P:continue Per POC.
--- NOTE | 2017-03-08 15:36 | PT AM DAY ---
Diagnosis : COPD Exacerbation AM - Physical Therapy S: The patient reports she feels like she is doing really well and is looking forward to going home soon. O: Physical therapy started after the completion of occupational therapy. She performed therapeutic exercises and functional activities including sit to stands, red theraband resisted long arc quads and knee flexion/extension, minute drills, seated marching, and heel raises. A: The patient is doing very well. P: Continue seeing patient BID during the week and one time per day over the weekend for transfers, ambulation, and range of motion/strengthening exercises. MTDD
--- NOTE | 2017-03-08 16:30 | OT.PROG ---
Progress Note Progress Note: S: Pt. reports that she is feeling okay today, however is tired this afternoon. Pt. reports wanting to go home soon. O: Pt. was seen from 15:00 to 15:30 for skilled OT session. Pt. completed toileting task with SBA for safety with toilet transfer and completed hygiene tasks independently. Pt. ambulated 100' to therapy room with the use of 2WW and SBA for safety. She completed UBE 2 X 3 min. with 3 min. rest break. She then completed the following exercises; 5# biceps curls X 10, sit to stands with SBA , horizontal abduction RTB X 10, shoulder flexion TRB X 10 and triceps X 10. Following therapy session, pt. was returned to bed with call light in place. A: Pt. requires rest break following approximately 3-5 min. of continuous activity and requires rest breaks of approximately 3 min. between exercises. She requires SBA with functional mobility with the use of walker for safety. P: Continue POC. CORNELIA Cowan
[2017-03-08] MEDS: ACETAMINOPHEN 500 MG TABLET PO PRN (21:49)
[2017-03-08] MEDS: diphenhydrAMINE 25 MG CAPSULE PO PRN (21:49)
[2017-03-08] MEDS: MAGNESIUM 400 MG/5 ML - 30 ML (MILK OF MAGNESIA) PO PRN (21:49)
[2017-03-09] MEDS: LEVALBUTEROL HCL 1.25 MG/3 ML NEB SCH ×2 (07:06→10:55)
[2017-03-09] MEDS: predniSONE Tab 20 MG TAB PO SCH (10:04)
[2017-03-09] MEDS: ENOXAPARIN SODIUM 30 MG/0.3 ML SYRINGE SUBCUT SCH (10:07)
[2017-03-09] MEDS: cefTRIAXone Inj 2 GM in Sodium Chloride 0.9% 100 ML IV SCH (11:52)
--- NOTE | 2017-03-09 12:07 | PT.PROG ---
Progress Note Progress Note: S: Patient reports that she is doing well today. She states that her MD may allow her home within the next day. O: Patient performed exercises in the form of: AMB SBA with walker approx. X161ft from room to therapy gym and back, Nustep X 5 min with two rest breaks, LAQ 3# X10 ea, seated marched X 10 ea, HS curls with green theraband X 10 ea, sit to stands X 10, UE strengthening with green theraband X 10 in all planes. O: Patient was able to complete all exercises with no discomfort. She demonstrated increased fatigue following therapy session. P: Progress per POC.
[2017-03-09 12:19] VITALS: BP 160/76; RESP 22; TEMP 98.3; O2SAT 91
--- NOTE | 2017-03-09 12:21 | DCSUMMARY ---
Hospitalization Summary Hospital Course: Final Discharge Diagnosis: Current Visit Problems Problem Status Onset Code Wheezing Acute R06.2 COPD exacerbation Acute J44.1 Hypoxia Acute R09.02 Hypertension Acute I10 DVT prophylaxis Acute Gram-positive bacteremia Acute R78.81 Pneumonia Acute J18.9 Weakness Acute R53.1 Diagnostic Data, Laboratory Data, and Procedures of Signifigance: Laboratory Results 03/03/17 03/03/17 03/03/17 Range/Units 13:35 13:35 13:35 WBC 12.47 H (4.8-10.8) 10^3/uL RBC 5.04 (4.20-5.40) 10^6/uL Hgb 15.7 (12.0-16.0) g/dL Hct 45.8 (37.0-47.0) % MCV 90.9 (81-99) FL MCH 31.2 H (27-31) PG MCHC 34.3 (33-37) g/dL RDW Std Deviation 48.0 (39-50) fL RDW Coeff of Sandee 14.7 H (11.5-14.5) % Plt Count 277 (140-350) 10*3/uL MPV 11.3 (7.4-12.2) FL Immature Gran % (Auto) (0-5) % Neut % (Auto) (50-80) % Lymph % (Auto) (10-50) % [facility] % (Auto) (5-15) % Eos % (Auto) (0-8) % Baso % (Auto) (0-1) % Immature Gran # (Auto) 10*3/UL Neut # (Auto) 10*3/UL Lymph # (Auto) 10*3/uL [facility] # (Auto) (0.3-0.8) 10*3/UL Eos # (Auto) 10*3/UL Baso # (Auto) 10*3/UL Neutrophils % (Manual) 71 (50-80) % Band Neutrophils % 4 (0-10) % Lymphocytes % (Manual) 12 (10-50) % Monocytes % (Manual) 9 (0-12) % Eosinophils % (Manual) 1 (0-8) % Basophils % (Manual) 0 (0-1) % Metamyelocytes % 3 % Myelocytes % 0 % Promyelocytes % 0 % Blast Cells 0 (0-1) % WBC Morphology Comment See comments (NORM) Plt Morphology Comment Normal morphology (NORM) RBC Morph Comment Normal morphology (NORM) D-Dimer 2.16 H (0.00-0.59) mg/L VBG pH (7.32-7.42) VBG pCO2 (45-55) mmHg VBG HCO3 (22-26) mmol/L VBG Base Excess (-2-2) MMOL/L Sodium 133 L (135-145) meq/L Potassium 4.1 (3.8-5.2) meq/L Chloride 96 L (98-112) meq/L Carbon Dioxide 26 (23-33) meq/L Anion Gap 11 (5-20) BUN 19 (7-22) mg/dL Creatinine 0.6 (0.50-1.20) mg/dL BUN/Creatinine Ratio 31.66 H (6-20) Glucose 190 H (78-110) mg/dL Calculated Osmolality 282.0 (267-292) mOsm/kg Lactic Acid 3.7 H (0.70-2.10) MMOL/L Calcium 10.2 (8.7-10.7) mg/dL Magnesium (1.6-2.4) mg/dL Total Bilirubin 1.6 H (0.3-1.2) mg/dL AST 29 (8-39) IU/L ALT 50 (9-52) IU/L Alkaline Phosphatase 134 H (38-126) IU/L Total Protein 7.7 (6.1-8.0) g/dL Albumin 4.0 (3.5-4.8) g/dL Globulin 3.7 (2.50-4.10) g/dL Albumin/Globulin Ratio 1.00 L (1.3-2.0) mg/g M.pneumoniae IgG Titer (<=0.90) index M.pneumoniae IgM (IFA) 03/03/17 03/03/17 03/03/17 Range/Units 13:35 13:50 20:05 WBC (4.8-10.8) 10^3/uL RBC (4.20-5.40) 10^6/uL Hgb (12.0-16.0) g/dL Hct (37.0-47.0) % MCV (81-99) FL MCH (27-31) PG MCHC (33-37) g/dL RDW Std Deviation (39-50) fL RDW Coeff of Sandee (11.5-14.5) % Plt Count (140-350) 10*3/uL MPV (7.4-12.2) FL Immature Gran % (Auto) (0-5) % Neut % (Auto) (50-80) % Lymph % (Auto) (10-50) % [facility] % (Auto) (5-15) % Eos % (Auto) (0-8) % Baso % (Auto) (0-1) % Immature Gran # (Auto) 10*3/UL Neut # (Auto) 10*3/UL Lymph # (Auto) 10*3/uL [facility] # (Auto) (0.3-0.8) 10*3/UL Eos # (Auto) 10*3/UL Baso # (Auto) 10*3/UL Neutrophils % (Manual) (50-80) % Band Neutrophils % (0-10) % Lymphocytes % (Manual) (10-50) % Monocytes % (Manual) (0-12) % Eosinophils % (Manual) (0-8) % Basophils % (Manual) (0-1) % Metamyelocytes % % Myelocytes % % Promyelocytes % % Blast Cells (0-1) % WBC Morphology Comment (NORM) Plt Morphology Comment (NORM) RBC Morph Comment (NORM) D-Dimer (0.00-0.59) mg/L VBG pH 7.36 (7.32-7.42) VBG pCO2 44 L (45-55) mmHg VBG HCO3 25 (22-26) mmol/L VBG Base Excess -1 (-2-2) MMOL/L Sodium (135-145) meq/L Potassium (3.8-5.2) meq/L Chloride (98-112) meq/L Carbon Dioxide (23-33) meq/L Anion Gap (5-20) BUN (7-22) mg/dL Creatinine (0.50-1.20) mg/dL BUN/Creatinine Ratio (6-20) Glucose (78-110) mg/dL Calculated Osmolality (267-292) mOsm/kg Lactic Acid 2.6 H (0.70-2.10) MMOL/L Calcium (8.7-10.7) mg/dL Magnesium (1.6-2.4) mg/dL Total Bilirubin (0.3-1.2) mg/dL AST (8-39) IU/L ALT (9-52) IU/L Alkaline Phosphatase (38-126) IU/L Total Protein (6.1-8.0) g/dL Albumin (3.5-4.8) g/dL Globulin (2.50-4.10) g/dL Albumin/Globulin Ratio (1.3-2.0) mg/g M.pneumoniae IgG Titer 2.38 (<=0.90) index M.pneumoniae IgM (IFA) Pending 03/04/17 03/04/17 03/04/17 Range/Units 03:50 03:50 03:50 WBC 7.94 (4.8-10.8) 10^3/uL RBC 4.29 (4.20-5.40) 10^6/uL Hgb 13.5 (12.0-16.0) g/dL Hct 39.6 (37.0-47.0) % MCV 92.3 (81-99) FL MCH 31.5 H (27-31) PG MCHC 34.1 (33-37) g/dL RDW Std Deviation 48.2 (39-50) fL RDW Coeff of Sandee 14.7 H (11.5-14.5) % Plt Count 237 (140-350) 10*3/uL MPV 11.4 (7.4-12.2) FL Immature Gran % (Auto) 0.4 (0-5) % Neut % (Auto) 84.6 H (50-80) % Lymph % (Auto) 5.8 L (10-50) % [facility] % (Auto) 8.9 (5-15) % Eos % (Auto) 0 (0-8) % Baso % (Auto) 0.3 (0-1) % Immature Gran # (Auto) 0.03 10*3/UL Neut # (Auto) 6.72 10*3/UL Lymph # (Auto) 0.46 10*3/uL [facility] # (Auto) 0.71 (0.3-0.8) 10*3/UL Eos # (Auto) 0 10*3/UL Baso # (Auto) 0.02 10*3/UL Neutrophils % (Manual) (50-80) % Band Neutrophils % (0-10) % Lymphocytes % (Manual) (10-50) % Monocytes % (Manual) (0-12) % Eosinophils % (Manual) (0-8) % Basophils % (Manual) (0-1) % Metamyelocytes % % Myelocytes % % Promyelocytes % % Blast Cells (0-1) % WBC Morphology Comment Normal morphology (NORM) Plt Morphology Comment Normal morphology (NORM) RBC Morph Comment Normal morphology (NORM) D-Dimer (0.00-0.59) mg/L VBG pH (7.32-7.42) VBG pCO2 (45-55) mmHg VBG HCO3 (22-26) mmol/L VBG Base Excess (-2-2) MMOL/L Sodium 138 (135-145) meq/L Potassium 4.3 (3.8-5.2) meq/L Chloride 102 (98-112) meq/L Carbon Dioxide 23 (23-33) meq/L Anion Gap 13 (5-20) BUN 16 (7-22) mg/dL Creatinine 0.6 (0.50-1.20) mg/dL BUN/Creatinine Ratio 26.66 H (6-20) Glucose 135 H (78-110) mg/dL Calculated Osmolality 288.0 (267-292) mOsm/kg Lactic Acid 1.1 (0.70-2.10) MMOL/L Calcium 9.6 (8.7-10.7) mg/dL Magnesium (1.6-2.4) mg/dL Total Bilirubin (0.3-1.2) mg/dL AST (8-39) IU/L ALT (9-52) IU/L Alkaline Phosphatase (38-126) IU/L Total Protein (6.1-8.0) g/dL Albumin (3.5-4.8) g/dL Globulin (2.50-4.10) g/dL Albumin/Globulin Ratio (1.3-2.0) mg/g M.pneumoniae IgG Titer (<=0.90) index M.pneumoniae IgM (IFA) 03/06/17 03/06/17 03/07/17 Range/Units 04:00 04:00 13:50 WBC 10.50 (4.8-10.8) 10^3/uL RBC 4.12 L (4.20-5.40) 10^6/uL Hgb 12.7 (12.0-16.0) g/dL Hct 38.6 (37.0-47.0) % MCV 93.7 (81-99) FL MCH 30.8 (27-31) PG MCHC 32.9 L (33-37) g/dL RDW Std Deviation 50.5 H (39-50) fL RDW Coeff of Sandee 15.1 H (11.5-14.5) % Plt Count 275 (140-350) 10*3/uL MPV 11.3 (7.4-12.2) FL Immature Gran % (Auto) (0-5) % Neut % (Auto) (50-80) % Lymph % (Auto) (10-50) % [facility] % (Auto) (5-15) % Eos % (Auto) (0-8) % Baso % (Auto) (0-1) % Immature Gran # (Auto) 10*3/UL Neut # (Auto) 10*3/UL Lymph # (Auto) 10*3/uL [facility] # (Auto) (0.3-0.8) 10*3/UL Eos # (Auto) 10*3/UL Baso # (Auto) 10*3/UL Neutrophils % (Manual) 72 (50-80) % Band Neutrophils % 16 H (0-10) % Lymphocytes % (Manual) 11 (10-50) % Monocytes % (Manual) 1 (0-12) % Eosinophils % (Manual) 0 (0-8) % Basophils % (Manual) 0 (0-1) % Metamyelocytes % Not Reportable % Myelocytes % Not Reportable % Promyelocytes % Not Reportable % Blast Cells Not Reportable (0-1) % WBC Morphology Comment Normal morphology (NORM) Plt Morphology Comment Normal morphology (NORM) RBC Morph Comment Normal morphology (NORM) D-Dimer (0.00-0.59) mg/L VBG pH (7.32-7.42) VBG pCO2 (45-55) mmHg VBG HCO3 (22-26) mmol/L VBG Base Excess (-2-2) MMOL/L Sodium 139 (135-145) meq/L Potassium 4.2 (3.8-5.2) meq/L Chloride 101 (98-112) meq/L Carbon Dioxide 27 (23-33) meq/L Anion Gap 11 (5-20) BUN 30 H (7-22) mg/dL Creatinine 0.7 (0.50-1.20) mg/dL BUN/Creatinine Ratio 42.85 H (6-20) Glucose 225 H (78-110) mg/dL Calculated Osmolality 300.0 H (267-292) mOsm/kg Lactic Acid (0.70-2.10) MMOL/L Calcium 9.1 (8.7-10.7) mg/dL Magnesium 2.2 (1.6-2.4) mg/dL Total Bilirubin (0.3-1.2) mg/dL AST (8-39) IU/L ALT (9-52) IU/L Alkaline Phosphatase (38-126) IU/L Total Protein (6.1-8.0) g/dL Albumin (3.5-4.8) g/dL Globulin (2.50-4.10) g/dL Albumin/Globulin Ratio (1.3-2.0) mg/g M.pneumoniae IgG Titer (<=0.90) index M.pneumoniae IgM (IFA) 03/08/17 Range/Units 08:33 WBC (4.8-10.8) 10^3/uL RBC (4.20-5.40) 10^6/uL Hgb (12.0-16.0) g/dL Hct (37.0-47.0) % MCV (81-99) FL MCH (27-31) PG MCHC (33-37) g/dL RDW Std Deviation (39-50) fL RDW Coeff of Sandee (11.5-14.5) % Plt Count (140-350) 10*3/uL MPV (7.4-12.2) FL Immature Gran % (Auto) (0-5) % Neut % (Auto) (50-80) % Lymph % (Auto) (10-50) % [facility] % (Auto) (5-15) % Eos % (Auto) (0-8) % Baso % (Auto) (0-1) % Immature Gran # (Auto) 10*3/UL Neut # (Auto) 10*3/UL Lymph # (Auto) 10*3/uL [facility] # (Auto) (0.3-0.8) 10*3/UL Eos # (Auto) 10*3/UL Baso # (Auto) 10*3/UL Neutrophils % (Manual) (50-80) % Band Neutrophils % (0-10) % Lymphocytes % (Manual) (10-50) % Monocytes % (Manual) (0-12) % Eosinophils % (Manual) (0-8) % Basophils % (Manual) (0-1) % Metamyelocytes % % Myelocytes % % Promyelocytes % % Blast Cells (0-1) % WBC Morphology Comment (NORM) Plt Morphology Comment (NORM) RBC Morph Comment (NORM) D-Dimer (0.00-0.59) mg/L VBG pH (7.32-7.42) VBG pCO2 (45-55) mmHg VBG HCO3 (22-26) mmol/L VBG Base Excess (-2-2) MMOL/L Sodium 135 (135-145) meq/L Potassium 3.9 (3.8-5.2) meq/L Chloride 99 (98-112) meq/L Carbon Dioxide 30 (23-33) meq/L Anion Gap 6 (5-20) BUN 23 H (7-22) mg/dL Creatinine 0.8 (0.50-1.20) mg/dL BUN/Creatinine Ratio 28.75 H (6-20) Glucose 85 (78-110) mg/dL Calculated Osmolality 282.0 (267-292) mOsm/kg Lactic Acid (0.70-2.10) MMOL/L Calcium 8.6 L (8.7-10.7) mg/dL Magnesium (1.6-2.4) mg/dL Total Bilirubin 0.8 (0.3-1.2) mg/dL AST 28 (8-39) IU/L ALT 131 H D (9-52) IU/L Alkaline Phosphatase 87 (38-126) IU/L Total Protein 5.1 L (6.1-8.0) g/dL Albumin 2.7 L (3.5-4.8) g/dL Globulin 2.4 L (2.50-4.10) g/dL Albumin/Globulin Ratio 1.10 L (1.3-2.0) mg/g M.pneumoniae IgG Titer (<=0.90) index M.pneumoniae IgM (IFA) Microbiology 03/03/17 13:40 Blood Blood Culture - Final NO GROWTH AFTER 5 DAYS 03/03/17 13:35 Blood Blood Culture - Final Haemophilus Influenzae 03/03/17 13:38 Sputum - Expectorated Sputum - Final 03/03/17 13:38 Sputum - Expectorated Sputum Sputum Culture - Final Haemophilus Influenzae History and Physical pertinent to Admission: This is an 86 years old female with medical history significant only for history of hypertension on no medications who came into the hospital with history of shortness of breath that started 2 days ago, shortness of breath is exertional also has cough and phlegm production which is yellow. She didn't think that she had fever. There is no chest pain. There is no leg swelling. Because of all the symptoms came into the ER, she was hypoxic with saturation of about 76% on room air. She was put on oxygen and the rest of Evaluation in the ER revealed COPD exacerbation and hence the admission. She did receive steroid, bronchodilator treatment and antibiotics. She is feeling somewhat better compared to when she came in. She said she is fairly independent and she 's not on oxygen at home. Past Medical History Medical History: 1. Hypertension Surgical History: History of previous hip replacement Family History: Reviewed an Not Pertinent Past Social History: She continued to smoke she smoke a pack a day since she was 15 years old, doesn't drink alcohol. Tobacco Use: Current Every Day Smoker In the Past 12 Months, Have Used or Abuse Any of the Following Substance: None Alcohol Use: None Course of Hospitalization: This very nice 86-year-old female with the past medical history significant for hypertension on no medication comes into the hospital because of shortness of breath that started 2 days prior to admission was found to be hypoxic about 76% on room air diagnosed with COPD exacerbation and pneumonia on CT scan with infiltrate also had positive blood cultures for Haemophilus influenza discussed the case with infectious disease she will need 2 g of ceftriaxone for a total 14 days PICC line was inserted. She will be discharged home in stable improved condition physical therapy also recommended that she is fine to be discharged home. Prescription was called in for the Advair and Spiriva she will do 5 more days of the prednisone also we are doing a room air challenge in the desat study to see if the patient needs oxygen at home she is 91% on room air at rest we will see when she walks that if she goes down. Patient really wants to go home and is very happy discussed the case with nursing who will call family to pick her up and arrange for antibiotic treatment for 10 more days On the date of discharge, the patient was examined: Gen.: No acute distress, alert, nontoxic Heart: Regular rate and rhythm, no murmurs, clicks, gallops, or rubs Lungs: Patient still has a few expiratory wheezes but much improved, breathing is nonlabored Abdomen/GI: Normal tones on auscultation, soft, nontender, nondistended Musculoskeletal/extremities: No clubbing, cyanosis, or edema Vitals reviewed and are listed below Assessment and Plan: 1. As per discharge assessments above 2. Disposition: Home 3. Condition on discharge, stable and improved. 4. Diet: regular diet 5. Activities: resume normal activities 6. Follow-Up: 1. PCP follow up with primary care physician 2. 7. Medications at the Time of Discharge: Home Medications Medication Instructions Recorded Confirmed Type Acetaminophen [Tylenol] 500 mg PO Q6H PRN tab 03/09/17 Rx Fluticasone/Salmeterol [Advair 1 ea IH BID #1 blst.w.dev 03/09/17 Rx 250-50 Diskus] Tiotropium Miller [Spiriva] 18 mcg IH DAILY #1 cap.w.dev 03/09/17 Rx cefTRIAXone Inj [Rocephin Inj] 2 gm IV Q24H #10 vial 03/09/17 Rx predniSONE Tab [Deltasone Tab] 40 mg PO DAILY #5 tab 03/09/17 Rx 3 Generic Name Dose Route Start Last Admin Trade Name Freq PRN Reason Stop Dose Admin Acetaminophen 500 mg 03/04/17 20:29 03/08/17 21:49 Tylenol PO 500 mg Q6H PRN Administration Joint Pain Albuterol Sulfate 2.5 mg 03/03/17 16:50 Albuterol Neb Soln 0.083% NEB Q2H PRN Shortness of Breath Diphenhydramine HCl 25 mg 03/04/17 20:26 03/08/17 21:49 Benadryl PO 25 mg Q6H PRN Administration Insomnia Enoxaparin Sodium 30 mg 03/05/17 09:00 03/09/17 10:07 Lovenox Inj SUBCUT 30 mg DAILY JOSE Administration Heparin Sodium (Porcine) 300 - 500 unit 03/06/17 11:25 03/08/17 11:32 Heparin Lock Inj (For Central Line) IVP 500 unit BID PRN Administration Flush Sodium Chloride 25 mls @ 200 mls/hr 03/03/17 16:46 03/08/17 10:54 Normal Saline 0.9% IV 200 mls/hr .Post Infusion PRN Administration No Primary IV for Flush ONLY Ceftriaxone Sodium 2 gm/ 100 mls @ 200 mls/hr 03/06/17 11:00 03/09/17 11:52 Sodium Chloride IV 200 mls/hr Q24H JOSE Administration Levalbuterol HCl 1.25 mg 03/04/17 07:00 03/09/17 10:55 Xopenex Neb Soln NEB 1.25 mg RTQID JOSE Administration Lidocaine HCl 0.5 ml 03/03/17 16:46 Lidocaine Buffered Inj SUBD ONCE PRN IV Starts Lidocaine HCl 0 mg 03/06/17 11:25 Xylocaine Inj 1% SUBCUT ONCE PRN picc line placement Lidocaine HCl 0 mg 03/06/17 11:25 Xylocaine Inj 2% SUBCUT ONCE PRN picc line placement Magnesium Hydroxide 30 ml 03/04/17 20:20 03/08/17 21:49 Milk Of Magnesia Susp PO 30 ml AC HS PRN Administration Constipation Ondansetron HCl 4 mg 03/04/17 18:37 03/04/17 19:32 Zofran Inj IVP 4 mg Q6H PRN Administration NAUSEA Prednisone 40 mg 03/08/17 09:00 03/09/17 10:04 Deltasone Tab PO 40 mg DAILY JOSE Administration Sodium Chloride 5 - 20 ml 03/03/17 16:46 03/07/17 04:41 Saline Flush IVP 10 ml BID PRN Administration Flush 8. Time, care, counseling and coordination of care for this discharge is greater than 30 minutes. Exam - Vitals Vital Signs: Vital Signs Temperature 98 F Temperature Source Temporal Artery Scan Pulse Rate [Apical] 105 Pulse Rate [Pulse Oximeter] 77 Pulse Rate 72 Respiratory Rate 19 Blood Pressure [Right Arm] 178/80 Blood Pressure [Left Arm] 144/66 Pulse Ox 92 Oxygen Flow Rate 1 Oxygen Delivery Method Nasal Cannula Height 5 ft 2 in Weight 115 lb 3.2 oz Patient Problems - Patient Problem List (1) Pneumonia Current Visit: Yes Status: Acute Code(s): J18.9 - Pneumonia, unspecified organism Category: Medical (2) COPD exacerbation Current Visit: Yes Status: Acute Code(s): J44.1 - Chronic obstructive pulmonary disease with (acute) exacerbation Category: Medical (3) Gram-positive bacteremia Current Visit: Yes Status: Acute Code(s): R78.81 - Bacteremia Category: Medical (4) Weakness Current Visit: Yes Status: Acute Code(s): R53.1 - Weakness Category: Medical
--- NOTE | 2017-03-11 09:39 | PT PM DAY ---
Diagnosis : COPD Exacerbation PM - Physical Therapy S: The patient reports overall she is doing well and wants to go home as soon as she can. O: Following occupational therapy, she performed therapeutic exercises and functional activities including seated marching x1 minute with two pound weights , long arc quads, seated marching x1 minute with two pound weights, long arc quads x20 bilaterally, minute drills x2, sit to stands, and hip abduction/ adduction. She then ambulated 200 feet continuously with front wheeled walker, gait belt, and stand by to contact guard assistance. A: The patient is doing well. P: Continue seeing patient BID during the week and one time per day over the weekend for transfers, ambulation, and range of motion/strengthening exercises. MTDD
== END 2017-03-09 14:02 | disposition home or self-care (01) | DRG 191 ==
LOC: ER 13:18 → MED/SURG 16:02
PROVIDERS: ADMIT Internal Medicine; ATTEND Internal Medicine